=== PATIENT | female | born 2005 | race Caucasian/White ===

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

== ENCOUNTER → 2023-06-07 | Outpatient (CLI) | payer OTHER ==
[2023-06-07 12:20] LABS: Candida species (DNA Probe) Negative (NEGATIVE); G. vaginalis (DNA Probe) Negative (NEGATIVE); T. vaginalis (DNA Probe) Negative (NEGATIVE)
== END ==
LOC: LAB 08:20 → LAB SHORT 08:20
PROVIDERS: Family Medicine
DX: N94.10 Unspecified dyspareunia (principal)
CPT/HCPCS: 87480; 87510; 87660

== ENCOUNTER → 2024-08-07 | Outpatient (CLI) | payer OTHER ==
[2024-08-07 11:49] LABS: LDL/HDL RATIO 2.3
[2024-08-07 11:50] LABS: Albumin, Blood 3.8 g/dL (3.4-5.0); Alk Phos 88 U/L (50-136); Anion Gap 8 mmol/L (3-11); Aspartate Aminotrans (AST/SGOT 15 U/L (12-37); Bilirubin, Total 0.5 mg/dL (0.1-1.0); Blood Urea Nitrogen 11 mg/dL (8-24); CHOL/HDL RATIO 3.9; CO2, Blood 29 mmol/L (21-32); Chloride, Blood 104 mmol/L (98-108); Cholesterol 162 mg/dL (50-200); Creatinine, Blood 0.79 mg/dL (0.40-1.00); Globulin, Blood 3.7 g/dL (2.2-4.0); Glomerular Filtration Rate 109 (60-); Glucose, Blood 94 mg/dL (70-99); HDL Cholesterol 42 mg/dL (>39); Low Density Lipoprotein Chol 97 mg/dL (0-110); Potassium, Blood 4.2 mmol/L (3.5-5.5); Sodium, Blood 137 mmol/L (136-145); Total Protein, Blood 7.5 g/dL (6.4-8.2); Triglycerides 114 mg/dL (30-140); Very Low Density Lipoprot Chol 22 mg/dL (6-28)
[2024-08-07 11:55] LABS: Alanine Aminotransfer (ALT/SGP 23 U/L (12-78); BASOPHILS ABSOLUTE AUTO 0.03 K/mm3 (0.00-0.23); BASOPHILS PERCENT AUTO 1 % (0-2); EOSINOPHILS ABSOLUTE AUTO 0.28 K/mm3 (0.00-0.68); EOSINOPHILS PERCENT AUTO 5 % (0-6); Hematocrit 41.3 % (33.0-51.0); Hemoglobin 14.7 g/dL (11.5-16.0); IMMATURE GRAN ABSOLUTE AUTO 0.01 K/mm3 (0.00-0.10); IMMATURE GRAN PERCENT AUTO 0 % (0-1); LYMPHOCYTES ABSOLUTE AUTO 2.02 K/mm3 (0.84-5.20); LYMPHOCYTES PERCENT AUTO 33 % (21-46); MONOCYTES ABSOLUTE AUTO 0.45 K/mm3 (0.16-1.47); MONOCYTES PERCENT AUTO 7 % (4-13); Mean Corpuscular HGB 33.4 pg (26.0-34.0); Mean Corpuscular HGB Conc 35.6 g/dL (31.5-36.5); Mean Corpuscular Volume 94 fL (80-100); Mean Platelet Volume 10.3 fL (9.1-12.4); NEUTROPHILS PERCENT AUTO 54 % (41-73); Platelet Count 314 K/mm3 (150-400); RDW Coefficient Variation 11.4 % (11.7-14.2); RDW Standard Deviation 39.5 fL (35.1-46.3); White Blood Cell Count 6.09 K/mm3 (4.00-11.30)
== END ==
LOC: LAB SHORT 10:04 → LAB 10:04
PROVIDERS: Nurse Practitioner Family
DX: Z00.00 Encounter for general adult medical examination without abnormal findings (principal)
CPT/HCPCS: 80053; 80061; 83036; 84443; 85025

== ENCOUNTER → 2025-05-08 | Outpatient (CLI) | payer OTHER ==
[2025-05-09 13:28] LABS: Chlamydia Trachomatis Urine NOT DETECTED (NOT DETECT); Neisseria Gonorrhoea Urine NOT DETECTED (NOT DETECT)
== END ==
LOC: LAB 17:12 → LAB SHORT 17:12
PROVIDERS: Obstetrics & Gynecology
DX: Z11.3 Encounter for screening for infections with a predominantly sexual mode of transmission (principal)
CPT/HCPCS: 87491; 87591